=== PATIENT | female | born 2000 | race Caucasian/White ===

== ENCOUNTER 2023-03-08 04:15 | Emergency (ER) | payer OTHER, SELFPAY ==
[2023-03-08 04:19] VITALS: BP 116/93; PULSE 105; RESP 18; TEMP 37.1; O2SAT 94; BMI 28.1
[2023-03-08 04:30] VITALS: BP 120/77; PULSE 115; O2SAT 97
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
[2023-03-08] MEDS: iohexol 350 mg/mL 500 mL Btl (per mL) IV (04:58)
[2023-03-08 05:00] VITALS: BP 110/64; PULSE 101; O2SAT 97
[2023-03-08 05:38] VITALS: BP 102/56; PULSE 102; RESP 16; O2SAT 96
== END 2023-03-08 05:41 | disposition home or self-care (01) ==
PROVIDERS: Emergency Provider Emergency Medicine; PCP Internal Medicine
DX: S00.03XA Contusion of scalp, initial encounter (principal); S80.812A Abrasion, left lower leg, initial encounter; S80.811A Abrasion, right lower leg, initial encounter; V86.55XA Driver of 3- or 4- wheeled all-terrain vehicle (ATV) injured in nontraffic accident, initial encounter
CPT/HCPCS: 70450; 71260; 72125; 74177; 99285; Q9967